=== PATIENT | male | born 1960 | race Caucasian/White ===

== ENCOUNTER 2016-05-09 02:15 | Inpatient (IN) | payer MEDICAID ==
[~2016-05-09] VITALS: Ht 167.6 cm; Wt 76.2 kg
--- NOTE | 2016-05-09 02:24 | NUR ---
PT BIB [facility] WITH C/O LETHARGIC MORE THAN USUAL AFTER RECEIVING OXYCODONE FOR ABD PAIN. PT DENIES ABD PAIN AT THIS TIME. PER EMS PT IS A/O X 3. PT IS BURMESE SPEAKING. DR GUZMAN AT BEDSIDE AND FEDERAL JUDGE ED AT BEDSIDE FOR TRANSLATION.
[2016-05-09] MEDS ORDERED: IV NS 0.9% 1,000 ML BAG IV ONE (02:30)
[2016-05-09] MEDS ORDERED: ONDANSETRON HCL/PF 4 MG/2 ML VIAL ONE (02:40)
[2016-05-09] MEDS ORDERED: HYDROMORPHONE 1 MG/1 ML DISP.SYRIN ONE ×2 (02:40→03:54)
[2016-05-09] MEDS ORDERED: IV NS 0.9% 1,000 ML ONE (02:41)
[2016-05-09] MEDS ORDERED: IV SET PRIMARY 1 EA INFUS.SET MC ONE (02:41)
[2016-05-09 02:49] LABS: EOSINOPHILS % (AUTO) 0.1 % (0.0-6.0); HEMATOCRIT 28 % (39-51); HEMOGLOBIN 8.5 g/dL (13.5-17.5); LYMPHOCYTES % (AUTO) 10.5 % (20.0-44.0); MEAN CORPUSCULAR HEMOGLOBIN 23 PG (26.0-33.0); MEAN CORPUSCULAR HGB CONC 31 g/dl (31.0-36.0); MEAN CORPUSCULAR VOLUME 74 fL (80-96); MONOCYTES # (AUTO) 0.7 /CMM (0.1-1.30); MONOCYTES % (AUTO) 7.7 % (2.0-12.0); NEUTROPHILS # (AUTO) 7.6 /CMM (1.8-8.9); NEUTROPHILS % (AUTO) 81.7 % (43.0-81.0); PLATELET COUNT (AUTO) 283 /CMM (150-450); RDW COEFFICIENT OF VARIATION 20.7 (11.5-15.0); RED BLOOD CELL COUNT(AUTO) 3.74 MIL/uL (4.5-6.0); WHITE BLOOD COUNT (AUTO) 9.3 K/uL (4.3-11.0)
[2016-05-09] MEDS ORDERED: HYDROMORPHONE 1 MG/1 ML DISP.SYRIN IV ONE ×2 (03:00→04:00)
[2016-05-09] MEDS ORDERED: ONDANSETRON HCL/PF - ER 4 MG/2 ML VIAL IV ONE (03:00)
[2016-05-09 03:07] LABS: CALCIUM, SERUM 8.4 mg/dL (8.5-10.1); CREATININE 0.6 mg/dL (0.6-1.3); TROPONIN I 0.04 ng/mL (0.00-0.056)
[2016-05-09 03:08] LABS: BILIRUBIN,DIRECT 0.2 mg/dL (0.0-0.2); BILIRUBIN,TOTAL 0.5 mg/dL (0.2-1.0)
[2016-05-09 03:09] LABS: ALBUMIN 2.1 g/dL (3.4-5.0); TOTAL PROTEIN, SERUM 6.9 g/dL (6.4-8.2)
--- NOTE | 2016-05-09 03:15 | NUR ---
PT REFUSED IN AND OUT CATH. URINAL GIVEN TO PT. PT ASKED TO STAND UP AT THE BEDSIDE AND WAS TOLD THAT HE WAS TOO WEAK TO STAND TO USE THE URINAL. DR. GUZMAN IS AWARE.
[2016-05-09] MEDS ORDERED: IV PREMIX D5 1/2NS + KCL 1,000 ML IV ONE ×2 (03:34→03:48)
--- NOTE | 2016-05-09 03:38 | NUR ---
PRINCIPAL TECHNOLOGIST, ED, AT THE BEDSIDE WITH DR. GUZMAN FOR TRANSLATION PURPOSES. PT IS C/O 06/17 ABD PAIN.
[2016-05-09 03:46] LABS: BAND % (MANUAL) 2 % (0.0-5.0); LYMPHOCYTES % (MANUAL) 4 % (16-48); MONOCYTES % (MANUAL) 4 % (0-11.0); NEUTROPHILS % (MANUAL) 90 (42-76); PLATELET ESTIMATE ADEQUATE
[2016-05-09 03:47] LABS: ANISOCYTOSIS 3+; HYPOCHROMASIA 2+
[2016-05-09] MEDS ORDERED: IV SET PRIMARY PUMP SET 1 EA INFUS.SET MC ONE ×3 (03:48→12:31)
--- NOTE | 2016-05-09 04:00 | NUR ---
NO URINE SAMPLE OF YET. DR. GUZMAN IS AWARE.
--- NOTE | 2016-05-09 04:12 | NUR ---
PT TRANSPORTED FOR CAT SCAN BY RADIOLOGY TEAM.
--- NOTE | 2016-05-09 04:35 | NUR ---
PT RETURNED FROM CAT SCAN.
[2016-05-09] MEDS ORDERED: PIPERACILLIN /TAZOBACTAM 3.375 G in IV D5W 50 ML IV ONE (05:30)
--- NOTE | 2016-05-09 05:35 | NUR ---
US AT BEDSIDE
[2016-05-09] MEDS ORDERED: PIPERACILLIN /TAZOBACTAM 3.375 G VIAL IV ONE (05:37)
[2016-05-09] MEDS ORDERED: IV D5W 50 ML IV ONE (05:37)
--- NOTE | 2016-05-09 05:45 | NUR ---
US COMPLETE, US TECH LEFT PT BEDSIDE.
--- NOTE | 2016-05-09 06:10 | NUR ---
GAVE REPORT TO URSULA MCCARTHY FOR CONTINUITY OF CARE.
[2016-05-09] MEDS ORDERED: OMEG500C PO (06:27)
[2016-05-09] MEDS ORDERED: POTA20TA83 PO (06:27)
[2016-05-09] MEDS ORDERED: FERR-58 PO (06:27)
--- NOTE | 2016-05-09 06:40 | NUR ---
MS RN NOTES: PATIENT BROUGHT TO MS FLOOR VIA GURNEY FROM ER. PATIENT AOX3, ETHIOPIAN SPEAKING, BUT WAS ABLE TO RESPOND WITH A BIT OF [place]BANIAN AND BY GESTURING. WITH O2 VIA NC AT 2 LPM. [place] PICC LINE INTACT AND PATENT TO FLUSH. STILL WAITING FOR ADMITTING ORDERS FROM DR RAMOS. PROVIDED FOR COMFORT AND SAFETY. WILL CONT TO MONITOR/
--- NOTE | 2016-05-09 06:45 | NUR ---
Sujit rodriguez in ED - 05/09/16 at 0657 by FRANKOILLE US COMPLETED AND HAS LEFT PT BEDSIDE.
--- NOTE | 2016-05-09 07:30 | NUR ---
RECEIVED PT. FROM ROBOT PROGRAMMER NURSE IN STABLE CONDITION. PT. LYING IN BED WITH O2 VIA NC AT 2L. [place] PICC LINE AND LEFT PORTOCATH INTACT AND PATENT. NO REDNESS OR INFLAMMATION. BED IN LOW LOCKED, POSITION, SIDE RAILS UP X2, CALL LIGHT WITHIN PT. REACH. WILL CONTINUE TO MONITOR.
[2016-05-09] MEDS ORDERED: POTA-88 PO (07:55)
[2016-05-09] MEDS ORDERED: [UNRECOGNIZED DRUG - CODE] PO (07:55)
[2016-05-09] MEDS ORDERED: MAGN400O6 PO (07:55)
[2016-05-09] MEDS ORDERED: MORP60CP14 PO (07:55)
[2016-05-09] MEDS ORDERED: FAMO20TA8 PO (07:55)
[2016-05-09] MEDS ORDERED: MORP60TA34 PO (07:55)
[2016-05-09] MEDS ORDERED: NA P133E RC (07:55)
[2016-05-09] MEDS ORDERED: GUAI5SYR PO (07:55)
[2016-05-09] MEDS ORDERED: NITR0.4T6 SL (07:55)
[2016-05-09] MEDS ORDERED: LORA0.5T PO (07:55)
[2016-05-09] MEDS ORDERED: AMLO5TAB2 PO (07:55)
[2016-05-09] MEDS ORDERED: MIRT15TA PO (07:55)
[2016-05-09] MEDS ORDERED: MULT-659 PO (07:55)
[2016-05-09] MEDS ORDERED: BENA40TA67 PO (07:55)
[2016-05-09] MEDS ORDERED: CLON0.1T PO (07:55)
[2016-05-09] MEDS ORDERED: AMIN30LI4 PO (07:55)
[2016-05-09] MEDS ORDERED: OXYC5CAP3 PO (07:55)
[2016-05-09] MEDS ORDERED: BISA10SU8 RC (07:55)
[2016-05-09] MEDS ORDERED: ACET-868 PO (07:55)
[2016-05-09] MEDS ORDERED: ASCO500T9 PO (07:55)
[2016-05-09 08:00] VITALS: BP 133/85
--- NOTE | 2016-05-09 08:00 | NUR ---
RN NOTES PATIENT SEEN AND EXAMINED BY DR. RAMOS, PER MD PT TO BE DISCHARGED AT THIS TIME MADE MD AWARE OF HR 107 AND PICC LINE ACCESS WITH NO NEW ORDERS MAY DC WITH PICC LINE ACCESS AND ALSO AWARE OF RCW PORTACATH. PT REFUSING TO HAVE PICTURE OF GROIN REDNESS AND LEFT UPPER THIGH HEALED SCAR, NURSING EDUCATION REINFORCED, WILL CONTINUE TO MONITOR PATIENT AND ASSIST WITH DISCHARGE PROCESS, PER NO NEED FOR ANY FURTHER PT OT OR DIETARY OR WOUND CONSULT AT THIS TIME PT IS TO BE DISCHARGED
[2016-05-09] MEDS ORDERED: POTASSIUM CHLORIDE 20 MEQ TAB.PRT.SR PO ONE (08:30)
[2016-05-09] MEDS ORDERED: IV NS 0.9% 500 ML IV ONE (08:30)
--- NOTE | 2016-05-09 10:45 | NUR ---
RN NOTES PT WITH EPISODE OF INCREASED BP 160/119 NOTED WITH INCREASED HR 130 AND DIAPHORESIS AND O2 SAT AT 88% ON 5LPM OXYGEN VIA FACE MASK. PER NORCO 5/325 MG TO BE GIVEN AND CONTINUE TO MONITOR STAT CXR AND ATB PT TO BE D/CD AFTER ADMINISTRATION IF STABLE
[2016-05-09] MEDS ORDERED: HYDROCODONE/APAP 5/325MG 1 EACH TABLET PO PRN (11:00)
[2016-05-09] MEDS ORDERED: ASCORBIC ACID 500 MG TABLET PO SCH (11:30)
[2016-05-09] MEDS ORDERED: NITROGLYCERIN 0.4 MG/TAB BOTTLE SL PRN (11:30)
[2016-05-09] MEDS ORDERED: NA PHOS,M-B/NA PHOS,DI-BA 1 EA ENEMA RC PRN (11:30)
[2016-05-09] MEDS ORDERED: LORAZEPAM 0.5 MG TABLET PO PRN (11:30)
[2016-05-09] MEDS ORDERED: BISACODYL SUPP (10 MG) 10 MG/SUPP.RECT SUPP.RECT RC PRN (11:30)
[2016-05-09] MEDS ORDERED: GUAIFENESIN/D-METHORPHAN HB 5 ML UDC PO PRN (11:30)
[2016-05-09] MEDS ORDERED: CLONIDINE HCL 0.1 MG TABLET PO PRN (11:30)
[2016-05-09] MEDS ORDERED: AMLODIPINE BESYLATE 5 MG TABLET PO SCH (11:30)
[2016-05-09] MEDS ORDERED: ACETAMINOPHEN 325 MG TABLET PO PRN (11:30)
[2016-05-09] MEDS ORDERED: LEVOFLOXACIN 500 MG /D5W 100ML 500 MG in PREMIX 1 EA IV SCH (12:00)
--- NOTE | 2016-05-09 12:30 | NUR ---
RN NOTES O2 SAT NOTED AT 96% ON 3LPM VIA NC CXR RESULT RELAYED TO DR. RAMOS WITH ORDER FOR MAY DISCHARGE TO SNF, PER MD IF 02 SAT > OR EQUAL TO 88% ON 3LPM VIA NC OKAY TO DC
[2016-05-09] MEDS ORDERED: IV NS 0.9% 250 ML IV ONE (12:31)
[2016-05-09] MEDS ORDERED: SECONDARY IV SET 1 EA INFUS.SET MC ONE (12:31)
[2016-05-09 12:32] VITALS: BP 111/76
[2016-05-09] MEDS ORDERED: oxyCODONE IR immediate release 5 MG CAPSULE PO PRN (13:00)
--- NOTE | 2016-05-09 13:30 | NUR ---
RN NOTES RECEIVED NOTIFICATION PT TO BE PICKED UP BY EMT AT 1400 UNABLE TO ADMINISTER, BOLUS AND MD CONY AWARE PER [facility] CM AND IRINA SEGOVIA UNABLE TO RESCHEDULE EMT TRANSPORT TIME, WILL CONTINUE TO MONITOR AT THIS TIME
--- NOTE | 2016-05-09 14:34 | NUR ---
RN NOTES PATIENT SEEN AND EXAMINED BY DR. RAMOS, PER MD PT TO BE DISCHARGED AT THIS TIME MADE MD AWARE OF HR 107 AND PICC LINE ACCESS WITH NO NEW ORDERS MAY DC WITH PICC LINE ACCESS AND ALSO AWARE OF RCW PORTACATH. PT REFUSING TO HAVE PICTURE OF GROIN REDNESS AND LEFT UPPER THIGH HEALED SCAR, NURSING EDUCATION REINFORCED, WILL CONTINUE TO MONITOR PATIENT AND ASSIST WITH DISCHARGE PROCESS, PER NO NEED FOR ANY FURTHER PT OT OR DIETARY OR WOUND CONSULT AT THIS TIME PT IS TO BE DISCHARGED. PT AWAKE ALERT AND VERBALLY RESPONSIVE, CONTINUED ON PAIN MANAGEMENT, RESPIRATIONS EVEN AND UNLABORED, [place] PICC LINE TO REMAIN IN PLACE, RCW ROSALBA CATH NOT ACCESSED, BOTH SITES WITH NO REDNESS OR INFILTRATION NOTED, WILL CONTINUE TO MONITOR, REPORT GIVEN TO MARA MCCARTHY AT [facility] FOR CONTINUITY OF CARE
--- NOTE | 2016-05-09 14:55 | NUR ---
RN NOTES EMT TRANSPORT IN UNIT FOR BLACKJACK DEALER, REPORT GIVEN FOR CONTINUITY OF CARE, PT DISCHARGED IN STABLE CONDITION
[2016-05-09] MEDS ORDERED: FERROUS SULFATE (325 MG) 325 MG/TAB TABLET PO SCH (17:00)
[2016-05-09] MEDS ORDERED: FAMOTIDINE (20 MG) 20 MG TABLET PO SCH (17:00)
[2016-05-09] MEDS ORDERED: MIRTAZAPINE 15 MG TABLET PO SCH (22:00)
[2016-05-09] MEDS ORDERED: MAGNESIUM HYDROXIDE 30 ML UDC PO PRN (22:00)
== END 2016-05-09 14:55 | DRG 136 ==
LOC: ER 02:19 → MEDSG2 06:15
PROVIDERS: ADMIT Internal Medicine; ATTEND Internal Medicine
DX: C78.00 Secondary malignant neoplasm of unspecified lung (principal); C79.89 Secondary malignant neoplasm of other specified sites; E86.0 Dehydration; I10 Essential (primary) hypertension; E87.6 Hypokalemia; D63.8 Anemia in other chronic diseases classified elsewhere; F32.9 Major depressive disorder, single episode, unspecified; D63.0 Anemia in neoplastic disease
CPT/HCPCS: 36415; 71010-TC; 76705-TC; 80048-TC; 80076-TC; 82140-TC; 82962-TC; 84484-TC; 85025-TC; 87081-TC; A4216; A4606; J1170; J1956; J2405; J2543; J3480; J3490; J7030; J7040; J7050; J7060; Z7610